=== PATIENT | female | born 1975 | race Caucasian/White ===

== ENCOUNTER 2018-03-19 18:10 | Emergency (ER) | payer SELFPAY ==
[2018-03-19] MEDS ORDERED: ASPIRIN 81 MG CHEWABLE TABLET ONE (18:44)
[2018-03-19] MEDS ORDERED: NITROGLYCERIN 0.4 MG/TAB SL ONE (18:45)
[2018-03-19 18:54] LABS: Absolute Lymphocytes (CBC) 3.1 K/uL (0.7-4.9); Absolute Monocytes 0.6 K/uL (0.1-1.3); Absolute Neutrophil 6.4 K/uL (1.8-8.0); Basophils % 0.9 % (0-1.3); Eosinophils % 1.4 % (0-4.4); Hematocrit 35.9 % (36.0-45.0); Lymphocytes % 29.9 % (15.3-44.8); MCH 27.6 pg (27.0-35.0); MCV 85.1 fL (80-100); MPV 8.2 fL (7.6-11.3); Monocytes % 6.1 % (3.3-12.3); RBC Red Blood Cell Count 4.22 M/uL (3.86-4.86)
[2018-03-19 18:55] LABS: Protime INR 1.04
[2018-03-19 19:07] LABS: Urine Blood NEGATIVE (NEG); Urine Glucose NEGATIVE (NEG); Urine Protein NEGATIVE (NEG); Urine Specific Gravity 1.015 (1.005-1.030)
[2018-03-19 19:13] LABS: ALT/SGPT 25 U/L (12-78); AST/SGOT 33 U/L (15-37); Albumin 3.8 g/dL (3.4-5.0); Alkaline Phosphatase 76 U/L (45-117); BUN Blood Urea Nitrogen 16 mg/dL (7-18); Bicarbonate 28 mmol/L (21-32); Bilirubin Direct < 0.1 mg/dL (0-0.2); Bilirubin Total 0.2 mg/dL (0.2-1.0); Glucose Level 88 mg/dL (74-106); Magnesium 2.6 mg/dL (1.8-2.4); NT PRO-BNP 50 pg/mL (<125); Potassium 3.7 mmol/L (3.5-5.1); Protein, Total 7.8 g/dL (6.4-8.2); Sodium Level 139 mmol/L (136-145)
--- NOTE | 2018-03-19 19:17 | RAD REPORT ---
EXAM DESCRIPTION: RAD - Chest Single View - 03/19/2018 6:54 pm CLINICAL HISTORY: Chest pain COMPARISON: None. TECHNIQUE: AP portable chest image was obtained 1850 hours . FINDINGS: Lungs are clear. Heart and vasculature are normal. No measurable pleural effusion and no p neumothorax. No gross bony abnormality seen. No acute aortic findings suspected. IMPRESSION: No acute cardiopulmonary process.
[2018-03-19] MEDS ORDERED: MAGNE/ALUM HYDROXD 30 ML UCUP ONE (19:53)
[2018-03-19] MEDS ORDERED: LIDOCAINE VISCOUS 2% SOLN 15 ML UDC ONE (19:53)
--- NOTE | 2018-03-19 22:15 | ER ---
Nurse's Notes [facility] Name: Stephania Zhou Age: 42 yrs Sex: Female : 1975 Arrival Date: 03/19/2018 Time: 18:10 Bed 26 Private MD: Jake Sanchez Diagnosis: Chest pain, unspecified Presentation: 03/19 18:18 Presenting complaint: Patient states: Back pain that started a few days ago, Chest pain sg that started today, non radiating, pt denies fever/N/V/D, reports urinary urgency that began today. Transition of care: patient was not received from another setting of care. Onset of symptoms was March 19, 2018. Risk Assessment: Do you want to hurt yourself or someone else? Patient reports no desire to harm self or others. Initial Sepsis Screen: Does the patient meet any 2 criteria? No. Patient's initial sepsis screen is negative. Does the patient have a suspected source of infection? No. Patient's initial sepsis screen is negative. Care prior to arrival: None. 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 - Social history:: Smoking status: Patient/guardian denies using tobacco, Patient/guardian denies using alcohol, street drugs, IV drugs. - Ebola Screening: : No symptoms or risks identified at this time. Screenin:48 Abuse screen: Denies threats or abuse. Denies injuries from another. Nutritional mg2 screening: No deficits noted. Tuberculosis screening: No symptoms or risk factors identified. Fall Risk None identified. Assessment: 18:48 General: Appears in no apparent distress. comfortable, Behavior is calm, cooperative. mg2 Pain: Complains of pain in chest Pain radiates to back Pain currently is 5 out of 10 on a pain scale. Quality of pain is described as aching, Pain began gradually, 4 hours ago. Is intermittent. Neuro: Level of Consciousness is awake, alert, obeys commands, Oriented to person, place, time, situation. Cardiovascular: Capillary refill < 3 seconds Patient's skin is warm and dry. Respiratory: Airway is patent Respiratory effort is even, unlabored, Respiratory pattern is regular, symmetrical. GI: No signs and/or symptoms were reported involving the gastrointestinal system. : No signs and/or symptoms were reported regarding the genitourinary system. EENT: No signs and/or symptoms were reported regarding the EENT system. Derm: Skin is intact, Skin is pink, warm \T\ dry. normal. Musculoskeletal: Circulation, motion, and sensation intact. 19:36 Reassessment: Patient appears in no apparent distress at this time. Patient and/or mg2 family updated on plan of care and expected duration. Pain level reassessed. Patient is alert, oriented x 3, equal unlabored respirations, skin warm/dry/pink. 20:40 Reassessment: Patient appears in no apparent distress at this time. Patient and/or mg2 family updated on plan of care and expected duration. Pain level reassessed. Patient is alert, oriented x 3, equal unlabored respirations, skin warm/dry/pink. 21:44 Reassessment: Patient appears in no apparent distress at this time. Patient and/or mg2 family updated on plan of care and expected duration. Pain level reassessed. Patient is alert, oriented x 3, equal unlabored respirations, skin warm/dry/pink. 22:42 Reassessment: Patient appears in no apparent distress at this time. Patient and/or mg2 family updated on plan of care and expected duration. Pain level reassessed. Patient is alert, oriented x 3, equal unlabored respirations, skin warm/dry/pink. Vital Signs: 18:19 Temp 98.2; sg 19:36 BP 105 / 62; Pulse 80; Resp 18; Pulse Ox 99% on R/A; mg2 20:39 BP 108 / 71; Pulse 77; Resp 18; Pulse Ox 98% ; Pain 0/10; mg2 21:43 BP 105 / 66; Pulse 73; Resp 18; Pulse Ox 98% on R/A; Pain 0/10; mg2 22:43 BP 110 / 60; Pulse 75; Resp 18; Pulse Ox 100% on R/A; Pain 0/10; mg2 18:19 reports needing to use the restroom really bad, will complete VS when pt finished using sg facilities ED Course: 18:10 Patient arrived in ED. rg4 18:10 Jake Sanchez MD is Private Physician. rg4 18:18 Christopher [facility]clure [facility]. jr8 18:18 Osvaldo Vergara MD is Attending Physician. jr8 18:19 Triage completed. sg 18:19 Arm band placed on. sg 18:37 Herber Funes, ZENAIDA is Primary Nurse. mg2 18:48 No provider procedures requiring assistance completed. Inserted saline lock: 20 gauge mg2 in left antecubital area, using aseptic technique. Blood collected. Patient maintains SpO2 saturation greater than 95% on room air. 18:50 Patient has correct armband on for positive identification. electronic device monitor on. Pulse mg2 ox on. NIBP on. 18:53 X-ray completed. Portable x-ray completed in exam room. Patient tolerated procedure kp1 well. 18:55 XRAY Chest (1 view) In Process Unspecified. EDMS 21:05 Repeat lab(s) drawn. by me, sent to lab. mg2 22:14 Sim Campos MD is Referral Physician. jr8 22:43 IV discontinued, intact, bleeding controlled, No redness/swelling at site. Pressure mg2 dressing applied. Administered Medications: 18:47 Drug: Aspirin Chewable Tablet 324 mg Route: PO; mg2 19:40 Follow up: Response: No adverse reaction mg2 18:47 Drug: Nitroglycerin 0.4 mg Route: Sublingual; mg2 19:40 Follow up: Response: No adverse reaction; Pain is unchanged, physician notified mg2 19:51 Drug: GI Cocktail without - (Maalox Suspension 30 ml, Lidocaine Liquid 2 % 15 mg2 ml) Route: PO; 20:35 Follow up: Response: No adverse reaction; Marked relief of symptoms mg2 Outcome: 22:14 Discharge ordered by . jr8 22:43 Discharged to home ambulatory, with family. mg2 22:43 Condition: stable 22:43 Discharge instructions given to patient, family, Instructed on discharge instructions, follow up and referral plans. Demonstrated understanding of instructions, follow-up care. 22:44 Patient left the ED. mg2 Signatures: Dispatcher [employer] EDMS Osvaldo Moise, ZENAIDA ESTEVEZ Christopher Mcclure PA PA jr8 May Aldridge rg4 Leatha Bowden kp1 Herber Funes, RN RN mg2
--- NOTE | 2018-03-19 22:15 | EDPHYS ---
Physician Documentation [facility] Name: Stephania Zhou Age: 42 yrs Sex: Female : 1975 Arrival Date: 03/19/2018 Time: 18:10 Bed 26 Private MD: Jake Sanchez ED Physician Osvaldo Vergara HPI: 03/19 18:31 This 42 yrs old Female presents to ER via Ambulatory with complaints of Chest jr8 Pain, Back Pain. 18:31 The patient or guardian reports chest pain that is located primarily in the substernal jr8 area. Onset: acutely, today. The pain radiates to the right shoulder, back. Associated signs and symptoms: Pertinent positives: nausea. The chest pain is described as causing indigestion, a pressure. Duration: The patient or guardian reports a single episode, that is still ongoing. Modifying factors: The symptoms are alleviated by nothing. the symptoms are aggravated by nothing. Severity of pain: At its worst the pain was moderate in the emergency department the pain is unchanged. The patient has not experienced similar symptoms in the past. The patient has not recently seen a physician. 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 - Social history:: Smoking status: Patient/guardian denies using tobacco, Patient/guardian denies using alcohol, street drugs, IV drugs. - Ebola Screening: : No symptoms or risks identified at this time. ROS: 18:31 Eyes: Negative for injury, pain, redness, and discharge, ENT: Negative for injury, jr8 pain, and discharge, Neck: Negative for injury, pain, and swelling, Respiratory: Negative for shortness of breath, cough, wheezing, and pleuritic chest pain, Abdomen/GI: Negative for abdominal pain, nausea, vomiting, diarrhea, and constipation, Back: Negative for injury and pain, MS/Extremity: Negative for injury and deformity, Skin: Negative for injury, rash, and discoloration, Neuro: Negative for headache, weakness, numbness, tingling, and seizure. 18:31 Cardiovascular: Positive for chest pain, Negative for edema, orthopnea, palpitations, paroxysmal nocturnal dyspnea. Exam: 18:31 Eyes: Pupils equal round and reactive to light, extra-ocular motions intact. Lids and jr8 lashes normal. Conjunctiva and sclera are non-icteric and not injected. Cornea within normal limits. Periorbital areas with no swelling, redness, or edema. ENT: Nares patent. No nasal discharge, no septal abnormalities noted. Tympanic membranes are normal and external auditory canals are clear. Oropharynx with no redness, swelling, or masses, exudates, or evidence of obstruction, uvula midline. Mucous membranes moist. Neck: Trachea midline, no thyromegaly or masses palpated, and no cervical lymphadenopathy. Supple, full range of motion without nuchal rigidity, or vertebral point tenderness. No Meningismus. Chest/axilla: Normal chest wall appearance and motion. Nontender with no deformity. No lesions are appreciated. Cardiovascular: Regular rate and rhythm with a normal S1 and S2. No gallops, murmurs, or rubs. Normal PMI, no JVD. No pulse deficits. Respiratory: Lungs have equal breath sounds bilaterally, clear to auscultation and percussion. No rales, rhonchi or wheezes noted. No increased work of breathing, no retractions or nasal flaring. Abdomen/GI: Soft, non-tender, with normal bowel sounds. No distension or tympany. No guarding or rebound. No evidence of tenderness throughout. Back: No spinal tenderness. No costovertebral tenderness. Full range of motion. Skin: Warm, dry with normal turgor. Normal color with no rashes, no lesions, and no evidence of cellulitis. MS/ Extremity: Pulses equal, no cyanosis. Neurovascular intact. Full, normal range of motion. Neuro: Awake and alert, GCS 15, oriented to person, place, time, and situation. Cranial nerves II-XII grossly intact. Motor strength 5/5 in all extremities. Sensory grossly intact. Cerebellar exam normal. Normal gait. 18:33 ECG was reviewed by the Attending Physician. jr8 Vital Signs: 18:19 Temp 98.2; sg 19:36 BP 105 / 62; Pulse 80; Resp 18; Pulse Ox 99% on R/A; mg2 20:39 BP 108 / 71; Pulse 77; Resp 18; Pulse Ox 98% ; Pain 0/10; mg2 21:43 BP 105 / 66; Pulse 73; Resp 18; Pulse Ox 98% on R/A; Pain 0/10; mg2 22:43 BP 110 / 60; Pulse 75; Resp 18; Pulse Ox 100% on R/A; Pain 0/10; mg2 18:19 reports needing to use the restroom really bad, will complete VS when pt finished using sg facilities MDM: 18:18 Patient medically screened. jr8 22:13 The patient was given aspirin in the Emergency Department. Data reviewed: vital signs, [facility] nurses notes, lab test result(s), EKG, radiologic studies, plain films, and as a result, I will discharge patient. Data interpreted: Pulse oximetry: on room air is 98 %. Interpretation: normal. Counseling: I had a detailed discussion with the patient and/or guardian regarding: the historical points, exam findings, and any diagnostic results supporting the discharge/admit diagnosis, lab results, radiology results, the need for outpatient follow up, a surgical services asst, a family practitioner, to return to the emergency department if symptoms worsen or persist or if there are any questions or concerns that arise at home. Response to treatment: the patient's symptoms have resolved after treatment. 03/19 18:31 Order name: CBC with Diff; Complete Time: 19:03 [facility] 03/19 18:31 Order name: Basic Metabolic Panel; Complete Time: 19:15 [facility] 03/19 18:31 Order name: LFT's; Complete Time: 19:15 [facility] 03/19 18:31 Order name: Magnesium; Complete Time: 19:15 [facility] 03/19 18:31 Order name: NT PRO-BNP; Complete Time: 19:15 [facility] 03/19 18:31 Order name: PT-INR; Complete Time: 19:03 [facility] 03/19 18:31 Order name: Troponin (emerg Dept Use Only); Complete Time: 19:13 [facility] 03/19 18:31 Order name: XRAY Chest (1 view); Complete Time: 19:17 jr8 03/19 18:51 Order name: Urine Dipstick--Ancillary (enter results); Complete Time: 19:13 mb4 03/19 18:51 Order name: Urine --Ancillary (enter results); Complete Time: 19:13 mb4 03/19 20:57 Order name: Troponin I; Complete Time: 22:16 mg2 03/19 18:31 Order name: EKG; Complete Time: 18:31 03/19 18:31 Order name: Cardiac monitoring; Complete Time: 18:38 03/19 18:31 Order name: EKG - Nurse/Tech; Complete Time: 18:38 03/19 18:31 Order name: IV Saline Lock; Complete Time: 18:38 03/19 18:31 Order name: Labs collected and sent; Complete Time: 18:38 03/19 18:31 Order name: O2 Per Protocol; Complete Time: 18:38 03/19 18:31 Order name: O2 Sat Monitoring; Complete Time: 18:38 03/19 18:31 Order name: Urine Dipstick-Ancillary (obtain specimen); Complete Time: 18:48 03/19 18:31 Order name: Urine Test (obtain specimen); Complete Time: 18:48 jr8 EC:33 Rate is 84 beats/min. Rhythm is regular, Normal Sinus Rhythm. QRS [place] is Normal. [place] jr8 interval is normal at 142 msec. QRS interval is normal at 88 msec. QT interval is normal at 449 msec. No Q waves. T waves are Inverted in lead III. T waves are Flattened in leads aVF, V3. No ST changes noted. Clinical impression: NSR w/ Non-specific ST/T Changes. Interpreted by me. Reviewed by me. Administered Medications: 18:47 Drug: Aspirin Chewable Tablet 324 mg Route: PO; mg2 19:40 Follow up: Response: No adverse reaction mg2 18:47 Drug: Nitroglycerin 0.4 mg Route: Sublingual; mg2 19:40 Follow up: Response: No adverse reaction; Pain is unchanged, physician notified mg2 19:51 Drug: GI Cocktail without - (Maalox Suspension 30 ml, Lidocaine Liquid 2 % 15 mg2 ml) Route: PO; 20:35 Follow up: Response: No adverse reaction; Marked relief of symptoms mg2 Disposition: 03/19/18 22:14 Discharged to Home. Impression: Chest pain, unspecified. - Condition is Stable. - Discharge Instructions: Nonspecific Chest Pain, Gastroesophageal Reflux Disease, Adult, Aspirin and Your Heart. - Medication Reconciliation Form, Thank You Letter, Antibiotic Education, Prescription Opioid Use form. - Follow up: Sim Campos MD; When: 1 - 2 days; Reason: Recheck today's complaints, Continuance of care, Re-evaluation by your physician. - Problem is new. - Symptoms have improved. Addendum: 03/21/2018 08:15 Co-signature as Attending Physician, Osvaldo Vergara MD I agree with the assessment and w a plan of care. Signatures: Dispatcher [employer] EDMS Osvaldo Moise RN RN sg Christopher Mcclure, GISEL PA jr8 Osvaldo Vergara MD MD az Herber Funes RN RN mg2 Corrections: (The following items were deleted from the chart) 03/19 22:44 22:14 03/19/2018 22:14 Discharged to Home. Impression: Chest pain, unspecified. mg2 Condition is Stable. Forms are Medication Reconciliation Form, Thank You Letter, Antibiotic Education, Prescription Opioid Use. Follow up: Sim Campos; When: 1 - 2 days; Reason: Recheck today's complaints, Continuance of care, Re-evaluation by your physician. Problem is new. Symptoms have improved. jr8
--- NOTE | 2018-03-20 07:08 | EKG ---
Test Date: 2018-03-19 Test Time: 18:22:30 Medical Economics Consultant: OMAR MEASUREMENT RESULTS: Intervals: Rate: 84 [place]: 142 QRSD: 88 QT: 380 QTc: 449 Kevin: P: 27 [place]: 142 QRS: 2 T: -3 INTERPRETIVE STATEMENTS: Normal sinus rhythm Normal ECG No previous ECG available for comparison Electronically Signed On 03-20-18 07:07:07 CDT by Sim Campos
== END 2018-03-19 22:44 | disposition home or self-care (01) ==
LOC: ER 18:10
DX: R07.9 Chest pain, unspecified (principal)
CPT/HCPCS: 36415; 71045; 80048; 80076; 81003; 81025; 83735; 83880; 84484; 85025; 85610; 93005; 99285

== ENCOUNTER 2019-06-11 19:03 | Emergency (ER) | payer SELFPAY ==
[2019-06-11] MEDS ORDERED: ALBUTEROL 2.5 MG/3 ML NEB SOL ONE ×2 (19:51→20:28)
[2019-06-11] MEDS ORDERED: IPRATROPIUM BROM 0.5MG/2.5ML ONE ×2 (19:51→20:28)
--- NOTE | 2019-06-11 20:00 | RAD REPORT ---
EXAM DESCRIPTION: [place] Single View06/11/2019 7:48 pm CLINICAL HISTORY: Chest pain COMPARISON: 2018 FINDINGS: The lungs appear clear of acute infiltrate. The heart is normal size IMPRESSION: No acute abnormalities displayed
--- NOTE | 2019-06-11 20:51 | ER ---
Nurse's Notes [facility] Name: Stephania Zhou Age: 43 yrs Sex: Female : 1975 Arrival Date: 06/11/2019 Time: 19:08 Bed 18 Private MD: Jake Sanchez Diagnosis: Bronchitis, not specified as acute or chronic Presentation: 06/11 19:28 Presenting complaint: Patient states: Reports having a non productive cough for a few ea days, states "this morning my cough got worse and now I have a hacking cough with lots of yellow mucus" Pt reports congestion, sinus pressure, headache, ear pain and pain in lungs when deep breathing. Transition of care: patient was not received from another setting of care. Onset of symptoms was June 11, 2019. Risk Assessment: Do you want to hurt yourself or someone else? Patient reports no desire to harm self or others. Initial Sepsis Screen: Does the patient meet any 2 criteria? HR > 90 bpm. Does the patient have a suspected source of infection? No. Patient's initial sepsis screen is negative. Care prior to arrival: None. 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 - Social history:: Smoking status: Patient/guardian denies using tobacco. - Ebola Screening: : No symptoms or risks identified at this time. Screenin:31 Abuse screen: Denies threats or abuse. Nutritional screening: No deficits noted. ea Tuberculosis screening: No symptoms or risk factors identified. Fall Risk None identified. Assessment: 19:54 General: Appears in no apparent distress. uncomfortable, Behavior is calm, cooperative, jd3 appropriate for age. Pain: Complains of pain in chest Quality of pain is described as aching. Neuro: Level of Consciousness is awake, alert, obeys commands, Oriented to person, place, time, situation. Cardiovascular: Capillary refill < 3 seconds Patient's skin is warm and dry. Respiratory: Reports cough that is non-productive, persistent pain with cough Airway is patent Respiratory effort is even, unlabored, Respiratory pattern is regular, symmetrical, Denies shortness of breath. GI: No signs and/or symptoms were reported involving the gastrointestinal system. : No signs and/or symptoms were reported regarding the genitourinary system. EENT: No signs and/or symptoms were reported regarding the EENT system. Derm: Skin is intact, Skin is dry, Skin is normal, Skin temperature is warm. Musculoskeletal: Circulation, motion, and sensation intact. Range of motion: intact in all extremities. 20:56 Reassessment: Patient appears in no apparent distress at this time. Patient and/or jd3 family updated on plan of care and expected duration. Pain level reassessed. Patient is alert, oriented x 3, equal unlabored respirations, skin warm/dry/pink. reported understanding of discharge instructions. even and steady gait upon discharge. Patient states feeling better. Vital Signs: 19:30 BP 123 / 74; Pulse 109; Resp 20; Temp 97.5; Pulse Ox 100% ; Weight 102.06 kg; Height 5 ea ft. 6 in. (167.64 cm); Pain 6/10; 19:30 Body Mass Index 36.32 (102.06 kg, 167.64 cm) ea ED Course: 19:08 Patient arrived in ED. es 19:08 Jake Sanchez MD is Private Physician. es 19:19 Freddie Cervantes MD is Attending Physician. tw4 19:30 Triage completed. ea 19:31 Arm band placed on right wrist. Patient placed in an exam room, on a stretcher, on ea pulse oximetry. 19:31 Patient has correct armband on for positive identification. Placed in gown. Bed in low ea position. Call light in reach. 19:47 CXR XRAY In Process Unspecified. EDMS 19:49 Joshua Jackson RN is Primary Nurse. jd3 20:57 No provider procedures requiring assistance completed. Patient did not have IV access jd3 during this emergency room visit. Administered Medications: 19:54 Drug: DuoNeb (3:1) (2.5 mg - 0.5 mg) 3 ml Route: Nebulizer; jd3 21:00 Follow up: Response: No adverse reaction jd3 20:45 Drug: Albuterol 1.25 mg Route: Inhalation; jd3 21:00 Follow up: Response: No adverse reaction jd3 20:45 Drug: AtroVENT Aerosol 0.5 mg Route: Inhalation; jd3 21:00 Follow up: Response: No adverse reaction jd3 Outcome: 20:50 Discharge ordered by . tw4 20:57 Discharged to home ambulatory, with family. jd3 20:57 Condition: stable 20:57 Discharge instructions given to patient, family, Instructed on discharge instructions, follow up and referral plans. medication usage, Demonstrated understanding of instructions, follow-up care, medications, Prescriptions given X 4. 21:01 Patient left the ED. jd3 Signatures: Dispatcher [employer] Jessi Lindsey Elena RN Joshua Bagley ea, RN RN Freddie Sauceda MD MD tw4 Corrections: (The following items were deleted from the chart) 21:00 20:59 Albuterol 1.25 mg Inhalation jd3 jd3
--- NOTE | 2019-06-11 20:51 | EDPHYS ---
Physician Documentation [facility] Name: Stephania Zhou Age: 43 yrs Sex: Female : 1975 Arrival Date: 06/11/2019 Time: 19:08 Bed 18 Private MD: Jake Sanchez ED Physician Freddie Cervantes HPI: 06/12 06:39 This 43 yrs old Female presents to ER via Ambulatory with complaints of Cough.tw4 06:39 The patient or guardian reports cough. Onset: The symptoms/episode began/occurred tw4 today. Severity of symptoms: At their worst the symptoms were mild, in the emergency department the symptoms are unchanged. Modifying factors: The symptoms are alleviated by nothing, the symptoms are aggravated by nothing. The patient has not experienced similar symptoms in the past. 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 - Social history:: Smoking status: Patient/guardian denies using tobacco. - Ebola Screening: : No symptoms or risks identified at this time. ROS: 06/12 06:39 Constitutional: Negative for fever, chills, and weight loss, Eyes: Negative for injury, tw4 pain, redness, and discharge, Cardiovascular: Negative for chest pain, palpitations, and edema, Abdomen/GI: Negative for abdominal pain, nausea, vomiting, diarrhea, and constipation, Back: Negative for injury and pain. MS/Extremity: Negative for injury and deformity, Skin: Negative for injury, rash, and discoloration. Respiratory: Positive for cough, shortness of breath. Exam: 06:39 Constitutional: This is a well developed, well nourished patient who is awake, alert, tw4 and in no acute distress. Head/Face: Normocephalic, atraumatic. Chest/axilla: Normal chest wall appearance and motion. Nontender with no deformity. No lesions are appreciated. Cardiovascular: Regular rate and rhythm with a normal S1 and S2. No gallops, murmurs, or rubs. Normal PMI, no JVD. No pulse deficits. Respiratory: Lungs have equal breath sounds bilaterally, clear to auscultation and percussion. No rales, rhonchi or wheezes noted. No increased work of breathing, no retractions or nasal flaring. Abdomen/GI: Soft, non-tender, with normal bowel sounds. No distension or tympany. No guarding or rebound. No evidence of tenderness throughout. MS/ Extremity: Pulses equal, no cyanosis. Neurovascular intact. Full, normal range of motion. Neuro: Awake and alert, GCS 15, oriented to person, place, time, and situation. Cranial nerves II-XII grossly intact. Motor strength 5/5 in all extremities. Sensory grossly intact. Cerebellar exam normal. Normal gait. Vital Signs: 06/11 19:30 BP 123 / 74; Pulse 109; Resp 20; Temp 97.5; Pulse Ox 100% ; Weight 102.06 kg; Height 5 ea ft. 6 in. (167.64 cm); Pain 6/10; 19:30 Body Mass Index 36.32 (102.06 kg, 167.64 cm) ea MDM: 19:20 Patient medically screened. tw4 06/12 06:40 Data reviewed: vital signs, nurses notes. Data reviewed: radiologic studies, plain tw4 films. Counseling: I had a detailed discussion with the patient and/or guardian regarding: the historical points, exam findings, and any diagnostic results supporting the discharge/admit diagnosis, radiology results. Medication response: albuterol nebulizer treatment(s) relieved the patient's symptoms. The patient is no longer wheezing. Response to treatment: and as a result, I will discharge patient. Special discussion: I discussed with the patient/guardian in detail that at this point there is no indication for admission to the hospital. It is understood, however, that if the symptoms persist or worsen the patient needs to return immediately for re-evaluation. 06/11 19:41 Order name: CXR XRAY; Complete Time: 20:22 tw4 Administered Medications: 06/11 19:54 Drug: DuoNeb (3:1) (2.5 mg - 0.5 mg) 3 ml Route: Nebulizer; jd3 21:00 Follow up: Response: No adverse reaction jd3 20:45 Drug: Albuterol 1.25 mg Route: Inhalation; jd3 21:00 Follow up: Response: No adverse reaction jd3 20:45 Drug: AtroVENT Aerosol 0.5 mg Route: Inhalation; jd3 21:00 Follow up: Response: No adverse reaction jd3 Disposition: 06/11/19 20:50 Discharged to Home. Impression: Bronchitis, not specified as acute or chronic. - Condition is Stable. - Discharge Instructions: Acute Bronchitis, Adult, Upper Respiratory Infection, Adult. - Prescriptions for Tessalon Perles 100 mg Oral Capsule - take 1 capsule by ORAL route every 8 hours As needed; 15 capsule. Albuterol Sulfate 90 mcg/actuation - inhale 1-2 puff by INHALATION route every 4-6 hours; 1 Inhaler. Guaifenesin AC 10- 100 mg/5 mL Oral Liquid - take 10 milliliter by ORAL route every 4 hours As needed; 240 milliliter. Tamika- D 12 Hour 60-120 mg Oral Tablet Sustained Release 12 hr - take 1 tablet by ORAL route every 12 hours As needed; 30 tablet. - Medication Reconciliation Form, Thank You Letter, Antibiotic Education, Prescription Opioid Use form. - Follow up: Private Physician; When: Upon discharge from the Emergency Department; Reason: Recheck today's complaints, Continuance of care. - Problem is new. - Symptoms have improved. Signatures: Dispatcher [employer] EDAyanna Waldron RN RN ea Davies, Jonathon, RN RN jd3 Wadley, Terrence, MD MD tw4 Corrections: (The following items were deleted from the chart) 21:01 20:50 06/11/2019 20:50 Discharged to Home. Impression: Bronchitis, not specified as jd3 acute or chronic. Condition is Stable. Forms are Medication Reconciliation Form, Thank You Letter, Antibiotic Education, Prescription Opioid Use. Follow up: Private Physician; When: Upon discharge from the Emergency Department; Reason: Recheck today's complaints, Continuance of care. Problem is new. Symptoms have improved. tw4
[2019-06-11 21:30] VITALS: BP 123/74; TEMP 97.5; O2SAT 100
== END 2019-06-11 21:01 | disposition home or self-care (01) ==
LOC: ER 19:03
DX: J40 Bronchitis, not specified as acute or chronic (principal)
CPT/HCPCS: 71045; 94640; 99284

== ENCOUNTER 2019-07-13 23:58 | Inpatient (IN) | payer BC, SELFPAY ==
[2019-07-14] MEDS ORDERED: ONDANSETRON 4 MG/2 ML VIAL ONE ×3 (00:16→07:56)
[2019-07-14] MEDS ORDERED: NA CHLORIDE 0.9% 1,000 ML ONE (00:16)
[2019-07-14] MEDS ORDERED: MORPHINE 4 MG/ML SYR ONE (00:16)
[2019-07-14 00:57] LABS: Absolute Lymphocytes (CBC) 3.2 K/uL (0.7-4.9); Basophils % 0.8 % (0-1.3); Hematocrit 32.6 % (36.0-45.0); Lymphocytes % 31.6 % (15.3-44.8); MPV 8.1 fL (7.6-11.3); RBC Red Blood Cell Count 4.02 M/uL (3.86-4.86)
[2019-07-14 01:10] LABS: ALT/SGPT 23 U/L (12-78); AST/SGOT 14 U/L (15-37); Albumin 3.6 g/dL (3.4-5.0); Alkaline Phosphatase 91 U/L (45-117); BUN Blood Urea Nitrogen 11 mg/dL (7-18); Bicarbonate 28 mmol/L (21-32); Bilirubin Direct < 0.1 mg/dL (0-0.2); Bilirubin Total 0.2 mg/dL (0.2-1.0); Glucose Level 121 mg/dL (74-106); Lipase 165 U/L (73-393); Potassium 3.6 mmol/L (3.5-5.1); Protein, Total 7.6 g/dL (6.4-8.2); Sodium Level 140 mmol/L (136-145)
[2019-07-14] MEDS ORDERED: METHYLPREDNISOLONE 125 MG INJ ONE (01:30)
[2019-07-14] MEDS ORDERED: DIPHENHYDRAMINE 50 MG/ML VIAL ONE (01:31)
[2019-07-14] MEDS ORDERED: FAMOTIDINE 20 MG/2 ML VIAL IV ONE (01:31)
[2019-07-14] MEDS ORDERED: PIPER/TAZO/NS 3.375gm 3.375 GM/100 ML BAG ONE (02:47)
--- NOTE | 2019-07-14 03:16 | ER ---
Nurse's Notes [facility] Name: Stephania Zhou Age: 43 yrs Sex: Female : 1975 Arrival Date: 07/14/2019 Time: 00:01 Bed 23 Private MD: Diagnosis: Acute cholecystitis Presentation: 07/14 00:09 Presenting complaint: Patient states: I started having abdominal pain after eating. I tl1 vomited once but the pain is still there. I have had this pain before but it has been about 6 months. Transition of care: patient was not received from another setting of care. Onset of symptoms was July 14, 2019. Risk Assessment: Do you want to hurt yourself or someone else? Patient reports no desire to harm self or others. Initial Sepsis Screen: Does the patient meet any 2 criteria? No. Patient's initial sepsis screen is negative. Does the patient have a suspected source of infection? No. Patient's initial sepsis screen is negative. Care prior to arrival: None. 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 - Social history:: Smoking status: Patient/guardian denies using tobacco, Patient uses alcohol, but reports only rare drinking. - Ebola Screening: : Patient negative for fever greater than or equal to 101.5 degrees Fahrenheit, and additional compatible Ebola Virus Disease symptoms Patient denies exposure to infectious person Patient denies travel to an Ebola-affected area in the 21 days before illness onset. Screenin:23 Abuse screen: Denies threats or abuse. Nutritional screening: No deficits noted. ea Tuberculosis screening: No symptoms or risk factors identified. Fall Risk None identified. Assessment: 00:24 General: Appears uncomfortable, Behavior is crying, restless. Pain: Complains of pain ea in right upper quadrant. Neuro: Level of Consciousness is awake, alert, obeys commands, Oriented to person, place, time, situation. Cardiovascular: Patient's skin is warm and dry. Respiratory: Airway is patent Respiratory effort is even, unlabored, Respiratory pattern is regular, symmetrical. GI: Bowel sounds present X 4 quads. Abdomen is tender to palpation in right upper quadrant. Derm: Skin is pink, warm \\T\\ dry. 00:48 Reassessment: Patient and/or family updated on plan of care and expected duration. Pain ea level reassessed. Pt reports pain is bearable now, states "it still hurts but not as much as earlier". 01:55 Reassessment: Patient and/or family updated on plan of care and expected duration. Pain ea level reassessed. Patient is alert, oriented x 3, equal unlabored respirations, skin warm/dry/pink. Pt returned from CT. 02:55 Reassessment: Patient and/or family updated on plan of care and expected duration. Pain ea level reassessed. Patient is alert, oriented x 3, equal unlabored respirations, skin warm/dry/pink. 03:30 Reassessment: Patient and/or family updated on plan of care and expected duration. Pain ea level reassessed. Patient is alert, oriented x 3, equal unlabored respirations, skin warm/dry/pink. 04:46 Reassessment: Patient and/or family updated on plan of care and expected duration. Pain ea level reassessed. Patient is alert, oriented x 3, equal unlabored respirations, skin warm/dry/pink. Pt admitted to fourth floor, left ED via stretcher per tech, pt tolerating well, no s/s of pain or discomfort at this time. Vital Signs: 00:12 BP 143 / 78; Pulse 65; Resp 17; Temp 98.2; Pulse Ox 100% ; Weight 99.79 kg; Height 5 tl1 ft. 6 in. (167.64 cm); Pain 10/10; 00:46 BP 114 / 78; Pulse 78; Resp 18; Pulse Ox 98% ; Pain 7/10; ea 01:55 BP 109 / 68; Pulse 80; Resp 18; Pulse Ox 98% ; ea 02:45 BP 110 / 70; Pulse 78; Resp 18; Temp 98; Pulse Ox 98% ; ea 04:47 BP 120 / 70; Pulse 72; Resp 18; Pulse Ox 100% ; ea 00:12 Body Mass Index 35.51 (99.79 kg, 167.64 cm) tl1 ED Course: 00:01 Patient arrived in ED. cf2 00:10 Freddie Marie MD is Attending Physician. tw4 00:11 Triage completed. tl1 00:14 Arm band placed on right wrist. tl1 00:18 Inserted saline lock: 20 gauge in right antecubital area, using aseptic technique. ea Blood collected. 00:20 Ayanna Zabala, ZENAIDA is Primary Nurse. ea 00:23 Patient has correct armband on for positive identification. Placed in gown. Bed in low ea position. Call light in reach. Side rails up X2. 00:26 Radiology exam delayed due to lab results not completed at this time. (HCG) eh (BUN/Creatinine). 01:51 Radiology exam delayed due to PRE-MEDICATION PER DR MARIE. eh 01:[address] via wheelchair. eh 02:07 CT completed. Patient tolerated procedure well. Patient moved back from CT. eh 02:13 CT Abd/Pelvis - IV Contrast Only In Process Unspecified. EDMS 03:15 Alex Kumari MD is Hospitalizing Provider. tw4 03:15 No provider procedures requiring assistance completed. Patient admitted, IV remains in ea place. Administered Medications: 00:25 Drug: NS 0.9% 1000 ml Route: IV; Rate: 1 bolus; Site: right antecubital; ea 02:30 Follow up: Response: No adverse reaction; IV Status: Completed infusion; IV Intake: ea 1000ml 00:25 Drug: morphine 4 mg Route: IVP; Site: right antecubital; ea 00:47 Follow up: Response: No adverse reaction; Pain is decreased ea 00:25 Drug: Zofran 4 mg Route: IVP; Site: right antecubital; ea 00:47 Follow up: Response: No adverse reaction ea 01:39 Drug: SOLU-Medrol 125 mg Route: IVP; Site: right wrist; ea 02:08 Follow up: Response: No adverse reaction ea 01:39 Drug: Benadryl 50 mg Route: IVP; Site: right antecubital; ea 02:08 Follow up: Response: No adverse reaction ea 01:40 Drug: Pepcid 20 mg Route: IVP; Site: right antecubital; ea 02:08 Follow up: Response: No adverse reaction ea 02:54 Drug: Zosyn 3.375 grams Route: IVPB; Infused Over: 60 mins; Site: right antecubital; ea Intake: 02:30 IV: 1000ml; Total: 1000ml. ea Outcome: 03:15 Decision to Hospitalize by Provider. tw4 04:48 Admitted to Med/surg accompanied by tech, via stretcher, with chart, Report called to grover Adam RN on fourth floor 04:48 Condition: stable 04:48 Instructed on the need for admit, Demonstrated understanding of instructions. 04:49 Patient left the ED. ea Signatures: Dispatcher [employer] He Guerrero Sarahy West, RN RN tl1 Ayanna Zabala RN RN Freddie Garnett MD MD tw4 Enedelia Marie cf2 Corrections: (The following items were deleted from the chart) 01:52 01:52 CT completed. Patient tolerated procedure [facility]
--- NOTE | 2019-07-14 03:16 | EDPHYS ---
Physician Documentation [facility] Name: Stephania Zhou Age: 43 yrs Sex: Female : 1975 Arrival Date: 07/14/2019 Time: 00:01 Bed 23 Private MD: ED Physician Freddie Cervantes HPI: 07/14 00:15 This 43 yrs old Female presents to ER via Ambulatory with complaints of tw4 Abdominal Pain, Vomiting. 00:15 The patient presents with abdominal pain. Onset: The symptoms/episode began/occurred tw4 today. The symptoms do not radiate. Associated signs and symptoms: Pertinent positives: nausea and vomiting, nausea, vomiting, Pertinent negatives: blood in stools, chest pain, constipation, diarrhea, dysuria, fever. The symptoms are described as sharp. Modifying factors: The symptoms are alleviated by nothing, the symptoms are aggravated by nothing. Severity of pain: At its worst the pain was moderate in the emergency department the pain is unchanged. The patient has not experienced similar symptoms in the past. 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 - Social history:: Smoking status: Patient/guardian denies using tobacco, Patient uses alcohol, but reports only rare drinking. - Ebola Screening: : Patient negative for fever greater than or equal to 101.5 degrees Fahrenheit, and additional compatible Ebola Virus Disease symptoms Patient denies exposure to infectious person Patient denies travel to an Ebola-affected area in the 21 days before illness onset. ROS: 00:15 Constitutional: Negative for fever, chills, and weight loss, Eyes: Negative for injury, tw4 pain, redness, and discharge, Cardiovascular: Negative for chest pain, palpitations, and edema, Respiratory: Negative for shortness of breath, cough, wheezing, and pleuritic chest pain, Back: Negative for injury and pain. 00:15 MS/Extremity: Negative for injury and deformity, Skin: Negative for injury, rash, and discoloration, Neuro: Negative for headache, weakness, numbness, tingling, and seizure. 00:15 Abdomen/GI: Positive for abdominal pain, Negative for nausea and vomiting, nausea, vomiting, and diarrhea, nausea, vomiting, diarrhea, constipation, abdominal cramps, abdominal distension, anorexia, dysphagia, hematemesis, black/tarry stool, rectal pain, rectal bleeding. Exam: 00:15 Head/Face: Normocephalic, atraumatic. tw4 00:15 Chest/axilla: Normal chest wall appearance and motion. Nontender with no deformity. No lesions are appreciated. Cardiovascular: Regular rate and rhythm with a normal S1 and S2. No gallops, murmurs, or rubs. Normal PMI, no JVD. No pulse deficits. Respiratory: Lungs have equal breath sounds bilaterally, clear to auscultation and percussion. No rales, rhonchi or wheezes noted. No increased work of breathing, no retractions or nasal flaring. Abdomen/GI: Soft, non-tender, with normal bowel sounds. No distension or tympany. No guarding or rebound. No evidence of tenderness throughout. MS/ Extremity: Pulses equal, no cyanosis. Neurovascular intact. Full, normal range of motion. Neuro: Awake and alert, GCS 15, oriented to person, place, time, and situation. Cranial nerves II-XII grossly intact. Motor strength 5/5 in all extremities. Sensory grossly intact. Cerebellar exam normal. Normal gait. Psych: Awake, alert, with orientation to person, place and time. Behavior, mood, and affect are within normal limits. 00:15 Constitutional: The patient appears in obvious distress, moderately distressed, in obvious pain. Vital Signs: 00:12 BP 143 / 78; Pulse 65; Resp 17; Temp 98.2; Pulse Ox 100% ; Weight 99.79 kg; Height 5 tl1 ft. 6 in. (167.64 cm); Pain 10/10; 00:46 BP 114 / 78; Pulse 78; Resp 18; Pulse Ox 98% ; Pain 7/10; ea 01:55 BP 109 / 68; Pulse 80; Resp 18; Pulse Ox 98% ; ea 02:45 BP 110 / 70; Pulse 78; Resp 18; Temp 98; Pulse Ox 98% ; ea 04:47 BP 120 / 70; Pulse 72; Resp 18; Pulse Ox 100% ; ea 00:12 Body Mass Index 35.51 (99.79 kg, 167.64 cm) tl1 MDM: 00:10 Patient medically screened. tw4 03:15 Differential diagnosis: cholecystitis, Cholelithiasis, gastritis, gastroesophageal tw4 reflux disease, GI Bleed, non-specific abd pain, pancreatitis, Peptic Ulcer Disease, Perf. Duodenal Ulcer, Perf. Gastric Ulcer, Peritonitis. Data reviewed: vital signs, nurses notes. Data interpreted: Pulse oximetry: Interpretation: normal. Counseling: I had a detailed discussion with the patient and/or guardian regarding: the historical points, exam findings, and any diagnostic results supporting the discharge/admit diagnosis, radiology results. Medication response: morphine relieved the patient's pain. Symptoms have resolved. Response to treatment: the patient's symptoms have markedly improved after treatment. Physician consultation: Alex Kumari MD regarding admission, to the medical/surgical unit. patient's condition, need to evaluate the patient as soon as possible, and will see patient in inpatient room, in OR. Admission orders: after a detailed discussion of the patient's condition and case, the admit orders are written by me. 03:53 Data reviewed: radiologic studies, CT scan. Data reviewed: lab test result(s), CBC, tw4 white blood cell count, hemoglobin, hematocrit, platelets, electrolytes, sodium, potassium, chloride, serum bicarbonate, BUN, creatinine, serum glucose, hepatic panel. 07/14 00:12 Order name: Basic Metabolic Panel; Complete Time: 02:4 07/14 02:31 Interpretation: Normal except: GLUC 121; GFR 60. tw4 07/14 00:12 Order name: CBC with Diff; Complete Time: 02:4 07/14 02:31 Interpretation: Normal except: HGB 10.9; HCT 32.6; MCV 81.1; RDW 16.7. tw4 07/14 00:12 Order name: Creatinine for Radiology; Complete Time: 02:4 07/14 02:32 Interpretation: Normal except: GFR 58. tw4 07/14 00:12 Order name: Hepatic Function; Complete Time: 02: tw4 07/14 00:12 Order name: Lipase; Complete Time: 02:4 07/14 03:24 Order name: Basic Metabolic Panel EDUT 07/14 00:12 Order name: CT Abd/Pelvis - IV Contrast Only tw4 07/14 03:24 Order name: Basic Metabolic Panel EDMS 07/14 03:24 Order name: CBC with Automated Diff EDMS 07/14 03:24 Order name: CBC with Automated Diff EDMS 07/14 03:24 Order name: Lipase EDMS 07/14 03:24 Order name: Lipase EDMS 07/14 03:24 Order name: Liver (Hepatic) Function EDMS 07/14 03:24 Order name: Liver (Hepatic) Function EDMS 07/14 00:12 Order name: IV Saline Lock; Complete Time: 00:24 tw4 07/14 00:12 Order name: Labs collected and sent; Complete Time: 00:25 tw4 07/14 03:24 Order name: NPO EDMS Administered Medications: 00:25 Drug: NS 0.9% 1000 ml Route: IV; Rate: 1 bolus; Site: right antecubital; ea 02:30 Follow up: Response: No adverse reaction; IV Status: Completed infusion; IV Intake: ea 1000ml 00:25 Drug: morphine 4 mg Route: IVP; Site: right antecubital; ea 00:47 Follow up: Response: No adverse reaction; Pain is decreased ea 00:25 Drug: Zofran 4 mg Route: IVP; Site: right antecubital; ea 00:47 Follow up: Response: No adverse reaction ea 01:39 Drug: SOLU-Medrol 125 mg Route: IVP; Site: right wrist; ea 02:08 Follow up: Response: No adverse reaction ea 01:39 Drug: Benadryl 50 mg Route: IVP; Site: right antecubital; ea 02:08 Follow up: Response: No adverse reaction ea 01:40 Drug: Pepcid 20 mg Route: IVP; Site: right antecubital; ea 02:08 Follow up: Response: No adverse reaction ea 02:54 Drug: Zosyn 3.375 grams Route: IVPB; Infused Over: 60 mins; Site: right antecubital; ea Disposition: 07/14/19 03:15 Hospitalization ordered by Alex Kumari for Inpatient Admission. Preliminary diagnosis is Acute cholecystitis. - Bed requested for Telemetry/MedSurg (Inpatient). - Status is Inpatient Admission. ea - Condition is Stable. - Problem is new. - Symptoms are unchanged. UTI on Admission? No Signatures: Dispatcher [employer] EDSarahy Cedeno RN RN tl1 Jazmin Aldridge, RN RN cg Ayanna Zabala, RN Freddie Cardenas ea, MD MD tw4 Corrections: (The following items were deleted from the chart) 03:41 03:15 Hospitalization Ordered by Alex Kumari MD for Inpatient Admission. Preliminary cg diagnosis is Acute cholecystitis. Bed requested for Telemetry/MedSurg (Inpatient). Status is Inpatient Admission. Condition is Stable. Problem is new. Symptoms are unchanged. UTI on Admission? No. tw4 03:54 03:15 Data reviewed: radiologic studies, ultrasound, 4 tw4 04:49 03:41 07/14/2019 03:15 Hospitalization Ordered by Alex Kumari MD for Inpatient ea Admission. Preliminary diagnosis is Acute cholecystitis. Bed requested for Telemetry/MedSurg (Inpatient). Status is Inpatient Admission. Condition is Stable. Problem is new. Symptoms are unchanged. UTI on Admission? No.
[2019-07-14] MEDS ORDERED: ACETAMINOPHEN 500 MG TAB PO PRN (03:23)
[2019-07-14] MEDS: D5 0.45 NS 1,000 ML IV SCH ×3 (04:00→17:49)
[2019-07-14 05:44] VITALS: BMI 36.8
[2019-07-14] MEDS ORDERED: Ringers Lactate 1,000 ML IV ONE ×2 (05:59→07:19)
[2019-07-14] MEDS ORDERED: LIDOCAINE 2% MPF 5 ML VIAL ONE (06:06)
[2019-07-14] MEDS ORDERED: propofoL 200 MG/20 ML VIAL IV ONE (06:06)
[2019-07-14] MEDS ORDERED: ROCURONIUM 50 MG/5 ML VIAL IV ONE (06:06)
[2019-07-14] MEDS ORDERED: FENTANYL CITR 100 MCG/2 ML ONE (06:07)
[2019-07-14 06:13] LABS: Urine Appearance CLEAR; Urine Bilirubin NEGATIVE (NEG); Urine Blood NEGATIVE (NEG); Urine Color YELLOW; Urine Glucose NEGATIVE (NEG); Urine Microscopic Reflex NO UMIC; Urine Protein NEGATIVE (NEG); Urine Specific Gravity >=1.030 (1.005-1.030); Urine Urobilinogen 0.2 mg/dL (0.2-1.0); Urine pH 7.5 (5.0-7.0)
[2019-07-14] MEDS ORDERED: KETOROLAC 30 MG/ML INJ ONE (06:31)
[2019-07-14] MEDS ORDERED: BUPIVACAINE 0.5% PF 10 ML VIAL ONE (06:31)
[2019-07-14] MEDS ORDERED: dexAMETHasone 10 MG/ML VIAL ONE (06:32)
[2019-07-14] MEDS ORDERED: NEOSTIGMINE 1 MG/ML -10 ML VIAL ONE (06:50)
[2019-07-14] MEDS ORDERED: GLYCOPYRROLATE 0.2 MG/ML SYR ONE (06:50)
--- NOTE | 2019-07-14 07:08 | PREOPHP ---
Date of Admission: 07/14/2019 Reason For Consultation: Abdominal pain. History Of Present Illness: Patient is a 43-year-old female who comes in with 2 history of biliary c olic with worse symptoms starting yesterday of upper abdominal pain associated with bloating, belchin g, heartburn, nausea and vomiting, going to the back, and localized in the right upper quadrant. She had Amezquita sign when she was admitted. No diarrhea or constipation. No blood in her stool. No dys uria or hematuria. No sore throat, runny nose, cough, headaches, or dizziness. No chest pain. No f ever or chills. The pain is postprandial in nature. Review of Systems: Otherwise unremarkable. Past Medical History: Negative. Past Surgical History: Bilateral tubal. Allergies: NO ALLERGIES. Social History: Does not smoke. Drinks occasionally. Family History: Significant for hypertension, diabetes. Physical Examination: Vital Signs: Stable. She is currently afebrile. She is awake, alert, and oriented x3. Head and neck: No evidence of icterus. Cranial nerves 2 through 12 are grossly within normal limits . No neck masses. No JVD. Throat clear. Neck is supple. Chest: Clear. Heart: S1 and S2. Abdomen: Soft, nondistended. Positive right upper quadrant tenderness with rebound and Amezquita sign. Extremity: Adequately perfused. Nontender. Neuro: Nonfocal. CT of the abdomen and pelvis reveals evidence of acute cholecystitis with thickeni ng of the gallbladder with some fluid around the gallbladder with some stones. No other disease iden tified. White count is normal. LFTs are normal. Lipase are normal. Assessment: Acute cholecystitis and cholelithiasis. Plan: Admit, n.p.o., IV fluid, IV antibiotic, to the OR for laparoscopic cholecystectomy, possible o pen. Patient understands the risks, benefits, and alternatives and agrees for the procedure. /MODL Voice ID: [id number]
--- NOTE | 2019-07-14 07:18 | P.OP ---
Acquisition Advisor: Jude HAMMER Preoperative diagnosis: Acute Cholecystitis and Cholelithiasis Postoperative diagnosis: same Primary procedure: Lap Janet Anesthesia: General Estimated blood loss: min Specimen: GB Findings: as above Complications: None Transferred to: Recovery Room Condition: Good
[2019-07-14] MEDS: HYDROMORPHONE HCL 1 MG/ML INJ ONE ×4 (07:40→08:12)
[2019-07-14] MEDS ORDERED: ONDANSETRON 4 MG/2 ML VIAL IV PRN (07:46)
--- NOTE | 2019-07-14 11:19 | RAD REPORT ---
EXAM DESCRIPTION: Abdomen Pelvis W Contrast CLINICAL HISTORY: ABD PAIN TECHNIQUE: Contiguous axial images obtained through the abdomen and pelvis following the uneventful administration of IV contrast. Coronal and sagittal reformatted images were provided. This exam was performed according to our departmental dose-optimization program, which includes autom ated exposure control, adjustment of the mA and/or kV according to patient size and/or use of iterati ve reconstruction technique. COMPARISON: 08/26/2014 FINDINGS: Lung bases: Clear Liver: Stable 2 x 1.6 cm left hepatic hyperdense lesion on arterial images. This becomes isodense on portal venous phase. 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 Gallbladder and biliary system: Small gallstones. The gallbladder wall is mildly thickened. Small nimesh unt of pericholecystic fluid. Pancreas: Unremarkable Spleen: Unremarkable Adrenals: Unremarkable Kidneys: Normal renal cortical enhancement. No calculi. No hydronephrosis. Excreted contrast is prese nt within both renal collecting systems bilaterally on delayed images. Bowel: Moderate stool within the proximal to mid large bowel. No obstruction. No appreciable mucosal thickening. Appendix: Normal caliber appendix. No findings to suggest acute appendicitis. Urinary bladder: Mild circumferential urinary bladder wall thickening. Reproductive: Unremarkable as visualized Lymph nodes: No pathologically enlarged lymph nodes. Peritoneum: No focal fluid collection. No free air. Vessels: No abdominal aortic aneurysm. Abdominal wall: Small fat-containing umbilical hernia. Bones: Minimal multilevel osteophytic lipping. No acute fracture. IMPRESSION: 1. Findings suggestive of acute cholecystitis. 2. Mild circumferential urinary bladder wall thickening. Please correlate clinically for cystitis. 3. Other findings as above. Electronically signed by: Yelena Falcon MD 07/14/2019 2:32 AM TWISTING PRESS OPERATOR Due to temporary technical issues with the PACS/Fluency reporting system, reports are being signed by the in house radiologist as a courtesy to ensure prompt reporting. The interpreting radiologist is f ully responsible for the content of the report.
[2019-07-14] MEDS: CEFOXITIN/SWI 1gm 1 GM/10 ML SYR IV SCH ×2 (11:42→17:50)
[2019-07-14] MEDS ORDERED: CEFOXITIN SODIUM 1 GM/VIAL IVPB SCH (12:00)
[2019-07-14] MEDS: HYDROCODONE/APAP 7.5/325 MG TAB PO PRN ×2 (13:47→18:16)
--- NOTE | 2019-07-14 14:26 | OP ---
Date of Procedure: 07/14/2019 Surgeon: Alex Kumari MD Receiver Bulk System: JAQUELIN Aparicio Preoperative Diagnoses: Acute cholecystitis and cholelithiasis. Postoperative Diagnoses: Acute cholecystitis and cholelithiasis. Procedure: Laparoscopic cholecystectomy. Estimated Blood Loss: Minimal. Specimen: Gallbladder. Findings: As above. Anesthesia: General. Complications: None. Patient tolerated the procedure in stable condition, taken to Recovery in good general condition. Description Of Procedure: Patient was brought to the OR, placed in supine position. General anesthe sb was begun. The patient was prepped and draped in usual sterile fashion. Marcaine 0.5% was infil trated locally. A 15-blade was used to make a 1 cm infraumbilical midline incision. Subcutaneous ti ssue divided. The fascia was identified and divided. A #1 Vicryl stay suture was placed. Peritonea l cavity was entered with sharp and blunt dissection. 12 mm trocar was placed into the peritoneal ca vity under direct vision. Pneumoperitoneum was established. Three 5 mm trocars were placed, 1 in th e epigastrium just to the right of midline and 2 in the right subcostal region. Laparoscopy revealed acute inflammation of the gallbladder with distention and gallbladder aspirated of bile and then fun dus retracted superiorly. Infundibulum was identified and retracted inferolaterally. Cystic duct an d cystic artery were clearly identified with sharp and blunt dissection. Clips placed. Both structu res were divided. Cautery was used to remove the gallbladder from the liver bed. Bleeding on the li nitesh bed was controlled with cautery. The gallbladder was retrieved through the umbilicus via an Endo Catch bag. Right upper quadrant was irrigated. Effluent was clear. No evidence of bleeding or bile leakage appreciated. Subsequently, all trocars were removed under direct vision. Stay sutures were tied to each other to reapproximate the fascial defect. Subcutaneous wounds were irrigated. Bleedi ng controlled with cautery and 3-0 chromic used to approximate the subcutaneous tissue and close the skin. Sterile dressing was applied. Patient was awakened and taken to Recovery in good general cond ition. /MODL Voice ID: [id number] Report ID: [id number]
[2019-07-14] MEDS: HYDROMORPHONE HCL 1 MG/ML INJ IV PRN (20:31)
[2019-07-15] MEDS: CEFOXITIN/SWI 1gm 1 GM/10 ML SYR IV SCH ×2 (00:32→06:37)
[2019-07-15] MEDS: D5 0.45 NS 1,000 ML IV SCH (00:33)
[2019-07-15] MEDS: HYDROCODONE/APAP 7.5/325 MG TAB PO PRN ×2 (04:01→09:24)
[2019-07-15 04:35] LABS: Absolute Lymphocytes (CBC) 1.3 K/uL (0.7-4.9); Basophils % 0.1 % (0-1.3); Hematocrit 29.7 % (36.0-45.0); Lymphocytes % 8.2 % (15.3-44.8); RBC Red Blood Cell Count 3.65 M/uL (3.86-4.86)
[2019-07-15 05:04] LABS: Platelet Estimate ADEQ; Toxic Granulation 1+; Urine White Blood Cell Casts OK
[2019-07-15 05:05] LABS: Blood Morphology Comment NOT SEEN (NOT SEEN)
[2019-07-15 08:10] VITALS: BP 119/63; TEMP 97.2
[2019-07-15 08:34] VITALS: O2SAT 98
[2019-07-15] MEDS: HYDROMORPHONE HCL 1 MG/ML INJ IV PRN (11:00)
--- NOTE | 2019-07-16 04:09 | DS ---
Date of Discharge: 07/15/2019 Admitting Diagnosis: Acute cholecystitis with cholelithiasis. Discharge Diagnosis: Acute cholecystitis with cholelithiasis. Procedure: Laparoscopic cholecystectomy. Hospital Course: Patient is a 43-year-old female who underwent the aforementioned procedure. Postop eratively, she is tolerating diet, ambulating, pain controlled with p.o. pain medication, afebrile. Therefore, patient will be discharged to home. Disposition: Home. Condition: Stable. Discharge Instructions: Resume home medications and diet. Activity as tolerated. No heavy lifting. Remove outer dressing in a.m. Shower. Keep Steri-Strips on at all times. Incentive spirometry as ordered. Follow up my office in 1 week. Call for appointment. Tylenol No. 3 one tablet p.o. q.4 p .r.n. pain. /MODL Voice ID: [id number] Report ID: [id number]
== END 2019-07-15 11:25 | disposition home or self-care (01) | DRG 419 ==
LOC: ER 23:58 → ERHOLD 07-14 03:20 → 4TH 07-14 04:02
PROVIDERS: ADMIT Surgery; ATTEND Surgery
PROC: 0FT44ZZ Resection of Gallbladder, Percutaneous Endoscopic Approach (ICD-10-PCS; principal; 2019-07-14 06:00)
DX: K80.00 Calculus of gallbladder with acute cholecystitis without obstruction (principal)
CPT/HCPCS: 36415; 74177; 80048; 80076; 81003; 83690; 85025; 88304; 96361; 96374; 96375; 99285; J1100; J1170; J1200; J2405; J2543; J2704; J2710; J2930; J3010; J7030; J7120; J7799; Q9967

== ENCOUNTER 2021-08-23 02:10 | Emergency (ER) | payer BC ==
--- OUTSIDE RECORDS SUMMARY | 2021-08-23 02:12 | XMS REPORT | Continuity of Care Document ---
:1975 Author Organization [facility] t Address [address] [place] [address] Care Team Providers Name Role Phone Stephanie ESTEVEZ, T Attending Clinician Unavailable Cassius KENNEDY, G Attending Clinician Libra MILLER Attending Clinician Unavailable Payers Payer Name Policy Type Policy Number Effective Date Expiration Date S ource Problems Condition Condition Condition Status Onset Resolution Last Treating Co mments Source Name Details Category Date Date Treatment Clinician Date No known No known Disease Unive rs active active ity of problems problems [facility] Allergies, Adverse Reactions, Alerts Allergy Allergy Status Severity Reaction(s) Onset Inactive Treating Comm ents Source Name Type Date Date Clinician NO KNOWN Drug Active Univers ALLERGIE Class ity of S [facility] Social History Social Habit Start Date Stop Date Quantity Comments Source Sex Assigned At Uni versity [facility] Exposure to SARS-CoV-2 Not sure [facility] [place] (event) [facility] Smoking Status Start Date Stop Date Source Unknown if ever smoked Universit y [facility] Medications Ordered Filled Start Stop Current Ordering Indication Dosage Frequency Signature Comments Components Source Medication Medication Date Date Medication? Clinician (SIG) Name Name butalbital- 2020- 2020- No 1{tbl} 1 tablet, Univers acetaminoph 2-30 12-30 Oral, ONCE i ty of en-caff 22:00: 21:05 NOW, 1 [place] (ESGIC) 00 :00 dose, Wed Medical 50-325-40 07/26/20 Branch mg tablet 1 at 1600, tablet Routine HYDROcodone 2019-07 2020- No 1{tbl} 1 tablet, Univers -acetaminop 2-30 12-30 Oral, ity of [place] (NORCO) 22:00: 21:05 [place]CE[place] 1 [place] 10-325 mg 00 :00 dose, Wed Medic al tablet 1 07/26/20 Branch tablet at 1600, Routine fish 2019-07 Yes 1g Take 1 g Univers oil-omega-3 2-30 by mouth ity of fatty acids 21:55: [place] (FISH OIL[place] 59 Medical 340-1,000 Branch mg capsule Cholecalcif 2019-07 Yes 6000U Take 6,000 Univers nikole, 2-30 Units by ity of Vitamin D3, 21:55: mouth [place] (VITAMIN 59 daily. Medical D3) 50 mcg Branch (2,000 unit) capsule fexofenadin 2019-07 Yes 360mg Take 360 U nivers e (ALLERGY 2-30 mg by ity of RELIEF, 21:55: mouth [place] FEXOFENADIN 59 daily. Medica l E,) 180 mg Branch tablet DULOXETINE 2019-07 Yes 30mg Take 30 mg U nivers HCL, BULK, 2-30 by mouth ity o f MISC 21:55: daily. [place] 59 Medical Branch diclofenac- 2019-07 Yes Univer s capsaicin 2-30 ity of 75 mg- 21:55: [place] 0.025 % Kit 59 Medical Branch etanercept 2019-07 Yes 25mg inject 25 Un tata (ENBREL) 50 2-30 mg under ity of mg/mL (1 21:55: the skin [place] mL) 59 weekly. Medical injection Branch zolpidem 2019-07 Yes 12.5mg Take 12.5 Un tata (AMBIEN CR) 2-30 mg by ity of 12.5 mg CR 21:55: mouth at [place] as tablet 59 bedtime as Medical needed for Branch Sleep. levocetiriz 2019-07 Yes 10mg Take 10 mg Univers ine 2-30 by mouth. ity of dihydrochlo 21:55: [place] ride 59 Medical (LEVOCETIRI Branch ZINE ORAL) famotidine 2019-07 Yes 20mg Take 20 mg U nivers (PEPCID) 20 2-30 by mouth 2 it y of mg tablet 21:55: (two) [place] 59 times Medical daily. Branch azelastine 2019-07 Yes Use in Univ ers HCl 2-30 each ity of (AZELASTINE 21:55: nostril. [place] NASAL) 59 Medical Branch omalizumab 2019-07 Yes inject Unive rs (XOLAIR SC) 2-30 under the ity of 21:55: skin once [place] 59 every Medical month. Branch fish 2019-07 Yes 1g Take 1 g Univers oil-omega-3 2-30 by mouth ity of fatty acids 21:55: [place]. [place] (FISH OIL) 59 Medical 340-1,000 Branch mg capsule Cholecalcif 2019-07 Yes 6000U Take 6,000 Univers nikole, 2-30 Units by ity of Vitamin D3, 21:55: mouth [place] (VITAMIN 59 daily. Medical D3) 50 mcg Branch (2,000 unit) capsule fexofenadin 2019-07 Yes 360mg Take 360 U nivers e (ALLERGY 2-30 mg by ity of RELIEF, 21:55: mouth [place] FEXOFENADIN 59 daily. Medica l E,) 180 mg Branch tablet DULOXETINE 2019-07 Yes 30mg Take 30 mg U nivers HCL, BULK, 2-30 by mouth ity o f MISC 21:55: daily. [place] 59 Medical Branch diclofenac- 2019-07 Yes Univer s capsaicin 2-30 ity of 75 mg- 21:55: [place] 0.025 % Kit 59 Medical Branch etanercept 2019-07 Yes 25mg inject 25 Un tata (ENBREL) 50 2-30 mg under ity of mg/mL (1 21:55: the skin [place] mL) 59 weekly. Medical injection Branch zolpidem 2019-07 Yes 12.5mg Take 12.5 Un tata (AMBIEN CR) 2-30 mg by ity of 12.5 mg CR 21:55: mouth at [place] as tablet 59 bedtime as Medical needed for Branch Sleep. levocetiriz 2019-07 Yes 10mg Take 10 mg Univers ine 2-30 by mouth. ity of dihydrochlo 21:55: [place] ride 59 Medical (LEVOCETIRI Branch ZINE ORAL) famotidine 2019-07 Yes 20mg Take 20 mg U nivers (PEPCID) 20 2-30 by mouth 2 it y of mg tablet 21:55: (two) [place] 59 times Medical daily. Branch azelastine 2019-07 Yes Use in Univ ers HCl 2-30 each ity of (AZELASTINE 21:55: nostril. [place] NASAL) 59 Medical Branch omalizumab 2019-07 Yes inject Unive rs (XOLAIR SC) 2-30 under the ity of 21:55: skin once [place] 59 every Medical month. Branch benzonatate 2019-07 Yes [id number] 100mg Take 1 Univers 100 mg 2-30 capsule by ity of capsule 00:00: mouth 3 [place] 00 (three) Medical times Branch daily as needed for Cough. butalbital- 2019-07 Yes [id number] 1{tbl} Take 1 Univers acetaminoph 2-30 tablet by ity of en-caff 00:00: mouth [place] 50-325-40 00 every 4 Medical mg tablet (four) Branch hours as needed for Pain (scale 4-6) or Pain (scale 7-10). benzonatate 2019-07 Yes [id number] 100mg Take 1 Univers 100 mg 2-30 capsule by ity of capsule 00:00: mouth 3 [place] 00 (three) Medical times Branch daily as needed for Cough. butalbital- 2019-07 Yes [id number] 1{tbl} Take 1 Univers acetaminoph 2-30 tablet by ity of en-caff 00:00: mouth [place] 50-325-40 00 every 4 Medical mg tablet (four) Branch hours as needed for Pain (scale 4-6) or Pain (scale 7-10). codeine-gua 2019-07- No 10mL Take 10 mL Univers ifenesin 2-30 -07 by mouth ity of 10-100 mg/5 00:00: 05:59 every 6 [place] mL solution 00 :00 (six) Medical hours as Branch needed for Cough for up to 7 days. Indication s: night time cough codeine-gua 2019-07- No 10mL Take 10 mL Univers ifenesin 2-30 -07 by mouth ity of 10-100 mg/5 00:00: 05:59 every 6 [place] mL solution 00 :00 (six) Medical hours as Branch needed for Cough for up to 7 days. Indication s: night time cough cephALEXin 2019-07- No [id number] 250mg Take 1 Univers 250 mg 2-30 - capsule by ity of capsule 00:00: 05:59 mouth 4 [place] 00 :00 (four) Medical times Branch daily for 3 days. cephALEXin 2019-07- No [id number] 250mg Take 1 Univers 250 mg 2-30 - capsule by ity of capsule 00:00: 05:59 mouth 4 [place] 00 :00 (four) Medical times Branch daily for 3 days. Vital Signs Vital Name Observation Time Observation Value Comments Source Systolic blood 2020-07-26 21:50:00 146 mm[Hg] Univer sity of pressure [facility] Diastolic blood 2020-07-26 21:50:00 91 mm[Hg] Unive rsity of [facility] Heart rate 2020-07-26 21:50:00 93 /min [facility] Respiratory rate 2020-07-26 21:50:00 18 /min [facility] Oxygen saturation in 2020-07-26 21:50:00 97 /min [facility] Arterial blood by [facility] Pulse oximetry [place] Body temperature 2020-07-26 21:04:39 38.06 Laura [facility] Body weight 2020-07-26 19:18:00 113.399 kg [facility] Procedures Procedure Date / Time Performed Performing Clinician Sourc e URINALYSIS 2020-07-26 19:39:00 Abbey Miller [facility] ADC,CLC OR LCC ONLY - 2020-07-26 19:39:00 [facility] INFLUENZA A & B DIRECT Medical B ranch ANTIGEN NOTICE OF PRIVACY 2020-07-26 19:12:49 Doctor Unassigned, No Univ [facility] PRACTICES Name Medical Branch CONSENT/REFUSAL FOR 2020-07-26 19:12:32 [facility] AND Name Medical Branch TREATMENT Encounters Start End Encounter Admission Attending Care Care Encounter Source Date/Time Date/Time Type Type Clinicians Facility Department ID 2020-07-27 2020-07-27 Letter REYNA Brown [id number] Univers 00:00:00 00:00:00 (Out) Sharron YI [id number] it y of [facility] [id number] Ray [id number] [facility] 019 Branch 2020-07-26 2020-07-26 Emergency OLIVER Miller [id number] Univers 13:19:00 16:05:00 Abbey Acuna [id number] ity [facility] [id number] [facility] [id number] [facility] 084 Branch 2020-07-26 2020-07-26 Emergency X [facility] ERT [id number] Univers 13:19:00 13:19:00 ABBEY morales [facility] Results Test Description Test Time Test Comments Results Result Comments Source Urinalysis 2020-07-26 20:32:00 Test Item Value Reference Range Interpretation Comme nts APPEARANCE (test code = Hazy Clear A 5364196079) COLOR (test code = 7041060920) Yellow Yellow PH (test code = 8748801701) 4.8-8.0 SP GRAVITY (test code = 1.003-1.030 7466215682) GLU U QUAL (test code = Normal Normal 4382949219) BLOOD (test code = 5061493945) 1+ Negative A KETONES (test code = 6745939741) Negative Negative PROTEIN (test code = 2887-8) Negative Negative UROBILIN (test code = Normal Normal 5425850116) BILIRUBIN (test code = Negative Negative 3844043732) NITRITE (test code = 5219637436) Negative Negative LEUK ISMAEL (test code = 25/uL Negative A 7509451712) RBC/HPF (test code = 4186407277) See_Comment [Automated message] The system which ge nerated this result transmit sabas reference range: 0 - 3 HP F. The reference range was not used to interpret th is result as normal/abnormal . WBC/HPF (test code = 7716396116) See_Comment [Automated message] The system which ge nerated this result transmit sabas reference range: 0 - 5 HP F. The reference range was not used to interpret th is result as normal/abnormal . BACTERIA (test code = Few Negative A 3911056509) MUCOUS (test code = 8455809632) Slight Negative LPF A SQ EPITH (test code = HPF 5563509446) Lab Interpretation (test code = Abnormal 94229-2) [facility] - INFLUENZA A & B DIRECT [id number] 20:25:00 Test Item Value Reference Range Interpretation Comments Influenza A (test code = 67709-4) Negative Negative Influenza B (test code = 62784-1) Negative Negative Lab Interpretation (test code = Normal 89291-4) [facility]
[2021-08-23 02:41] LABS: Urine Blood 3+ (Negative); Urine Glucose Negative (Negative); Urine Protein 2+ (Negative); Urine Specific Gravity >=1.030 (1.005-1.030); Urine pH 6.5 (5.0-7.0)
[2021-08-23] MEDS ORDERED: CEFTRIAXONE 1000 MG/VIAL ONE (02:46)
[2021-08-23] MEDS ORDERED: LIDOCAINE 1% MPF 2 ML AMPULE ONE ×2 (02:47→02:51)
[2021-08-23] MEDS ORDERED: HYDROCODONE/APAP 10/325 TAB ONE (02:51)
--- NOTE | 2021-08-23 02:53 | EDPHYS ---
Physician Documentation [facility] Name: Stephania Zhou Age: 45 yrs Sex: Female : 1975 Arrival Date: 08/23/2021 Time: 02:12 Bed 20 Private MD: Zaire Portillo ED Physician Dani Martines HPI: 08/23 02:49 This 45 yrs old Unknown Female presents to ER via Ambulatory with complaints of Urinary rn Problem. 02:49 The patient presents with urinary symptoms, dysuria, frequency, hematuria, urgency. rn Onset: The symptoms/episode began/occurred yesterday. Modifying factors: The symptoms are alleviated by nothing, the symptoms are aggravated by urinating. Associated signs and symptoms: Pertinent positives: dysuria, nausea, Pertinent negatives: fever. Severity of symptoms: At their worst the symptoms were mild, in the emergency department the symptoms are unchanged. The patient has experienced similar episodes in the past. The patient has not recently seen a physician. Patient reports 2 days of dysuria, blood-tinged urine, nausea and suprapubic abdominal pain. Reports feels similar to her previous UTIs. Denies fever or vomiting. No back pain. No trauma. No history of kidney stones.. UNDERCOVER COP: 02:21 LMP 08/04/2021 al4 Historical: - Allergies: 02:21 Iodine; al4 - PMHx: 02:21 Arthritis; al4 - PSHx: 02:21 Cholecystectomy; tubal ligation; al4 - Immunization history:: Adult Immunizations up to date, Client reports receiving the 2nd dose of the Covid vaccine, Flu vaccine is not up to date. - Social history:: Smoking status: Patient denies any tobacco usage or history of. Patient uses alcohol, weekly. - Family history:: not pertinent. - Hospitalizations: : No recent hospitalization is reported. ROS: 02:49 Constitutional: Negative for fever, chills, and weight loss, Cardiovascular: Negative rn for chest pain, palpitations, and edema, Respiratory: Negative for shortness of breath, cough, wheezing, and pleuritic chest pain, Abdomen/GI: + suprapubic abd cramping and nausea : + dysuria and blood-tinged urine Exam: 02:49 Constitutional: This is a well developed, well nourished patient who is awake, alert, rn and in no acute distress. Cardiovascular: Regular rate and rhythm. No pulse deficits. Abdomen/GI: soft, mild suprapubic tenderness, no rebound Back: No CVAT Skin: Warm, dry Vital Signs: 02:18 BP 137 / 99; Pulse 97; Resp 18 S; Temp 98.5(O); Pulse Ox 100% on R/A; Weight 113.4 kg al4 (R); Height 5 ft. 6 in. (167.64 cm) (R); Pain 9/10; 02:56 BP 126 / 55 LA Supine (auto/reg); Pulse 82 MON; Resp 18 S; Temp 98.6(O); Pulse Ox 100% tk1 on R/A; 02:18 Body Mass Index 40.35 (113.40 kg, 167.64 cm) al4 MDM: 02:22 Patient medically screened. rn 02:49 Differential diagnosis: urinary tract infection. Data reviewed: vital signs, nurses rn notes, lab test result(s), urinalysis, and as a result, I will discharge patient. Counseling: I had a detailed discussion with the patient and/or guardian regarding: the historical points, exam findings, and any diagnostic results supporting the discharge/admit diagnosis, lab results, the need for outpatient follow up, to return to the emergency department if symptoms worsen or persist or if there are any questions or concerns that arise at home. Special discussion: I discussed with the patient/guardian in detail that at this point there is no indication for admission to the hospital. It is understood, however, that if the symptoms persist or worsen the patient needs to return immediately for re-evaluation. 08/23 02:23 Order name: Urine Microscopic Only rn 08/23 02:23 Order name: Urine Microscopic Only [facility] 08/23 02:23 Order name: Urine Dipstick-Ancillary (obtain specimen); Complete Time: 02:56 rn 08/23 02:40 Order name: Urine Dipstick-Ancillary; Complete Time: 02:52 EDMS 08/23 02:23 Order name: Urine Test (obtain specimen) rn Administered Medications: 02:50 Drug: Rocephin (cefTRIAXone) 1 grams Route: IM; Site: left ventrogluteal; tk1 02:55 Drug: [place] (HYDROcodone-acetaminophen) 10 mg-325 mg 1 tabs Route: PO; tk1 Disposition Summary: 08/23/21 02:52 Discharge Ordered Location: Home rn Problem: new rn Symptoms: have improved rn Condition: Stable rn Diagnosis - UTI/ Urinary tract infection, site not specified rn Followup: rn - With: Private Physician - When: As needed - Reason: Recheck today's complaints, Re-evaluation by your physician Discharge Instructions: - Discharge Summary Sheet rn - Urinary Tract Infection, Adult rn Forms: - Medication Reconciliation Form rn - Thank You Letter rn - Antibiotic harness cutter - Prescription Opioid Use rn - Work release form mw2 Prescriptions: - cefpodoxime 100 mg Oral Tablet - take 2 tablets by ORAL route every 12 hours for 10 days take with food; 40 rn tablet; Refills: 0, Product Selection Permitted Signatures: Dispatcher [employer] EDDani Antonio MD MD rn Ledbetter, Alexis al4 Kirby, Tammie tk1
--- NOTE | 2021-08-23 02:53 | ER ---
Nurse's Notes [facility] Name: Stephania Zhou Age: 45 yrs Sex: Female : 1975 Arrival Date: 08/23/2021 Time: 02:12 Bed 20 Private MD: Zaire Portillo Diagnosis: UTI/ Urinary tract infection, site not specified Presentation: 08/23 02:18 Chief complaint: Patient states: "I am peeing blood and have lots of pain. I am also al4 having diarrhea. My whole pelvis area has been sore for 3 days, but the burning with urination started today and I am having to go so frequently. I think its a UTI because I have had them before.". Coronavirus screen: Vaccine status: Patient reports receiving the 2nd dose of the covid vaccine. [employer]. Ebola Screen: No symptoms or risks identified at this time. Initial Sepsis Screen: Does the patient meet any 2 criteria? HR > 90 bpm. No. Patient's initial sepsis screen is negative. Does the patient have a suspected source of infection? No. Patient's initial sepsis screen is negative. Risk Assessment: Do you want to hurt yourself or someone else? Patient reports no desire to harm self or others. Onset of symptoms was August 23, 2021. 02:18 Method Of Arrival: Ambulatory al4 02:18 Acuity: HETAL 3 al4 Triage Assessment: 02:24 General: Appears in no apparent distress. uncomfortable, Behavior is calm, cooperative, al4 appropriate for age. Pain: Complains of pain in pelvis. Neuro: Level of Consciousness is awake, alert, obeys commands, Oriented to person, place, time, situation. Cardiovascular: Capillary refill < 3 seconds Patient's skin is warm and dry. Respiratory: Airway is patent Respiratory effort is even, unlabored, Respiratory pattern is regular, symmetrical. GI: Reports diarrhea. : Reports burning with urination, pain urgency, urinary frequency, vaginal itching. Musculoskeletal: Range of motion: intact in all extremities. 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 - Social history:: Smoking status: Patient denies any tobacco usage or history of. Patient uses alcohol, weekly. - Family history:: not pertinent. - Hospitalizations: : No recent hospitalization is reported. Screenin:56 Abuse screen: Denies threats or abuse. Denies injuries from another. Nutritional tk1 screening: No deficits noted. Tuberculosis screening: No symptoms or risk factors identified. Fall Risk None identified. Assessment: 02:33 General: Appears uncomfortable, well groomed, well developed, well nourished, Behavior tk1 is calm, cooperative, appropriate for age. 02:56 Pain: Complains of pain in suprapubic area Pain does not radiate. Pain currently is 8 tk1 out of 10 on a pain scale. Quality of pain is described as sharp, Pain began 1 day ago. Is continuous, Alleviated by nothing. Neuro: Level of Consciousness is awake, alert, obeys commands, Oriented to person, place, time, situation, Appropriate for age [employer] are equal bilaterally Moves all extremities. Full function Gait is steady, Speech is normal, Cardiovascular: No deficits noted. Respiratory: Airway is patent Respiratory effort is even, unlabored, Respiratory pattern is regular, symmetrical. GI: No deficits noted. : Urine is cloudy, Reports burning with urination, since 08/21/2021 pain in bilateral lower quadrant(s). EENT: No deficits noted. Derm: No deficits noted. Musculoskeletal: No deficits noted. 03:15 Reassessment: D/C per MD order. Discharge/Prescription instructions given to patient tk1 and SO. Verbalized understanding. Vital Signs: 02:18 BP 137 / 99; Pulse 97; Resp 18 S; Temp 98.5(O); Pulse Ox 100% on R/A; Weight 113.4 kg al4 (R); Height 5 ft. 6 in. (167.64 cm) (R); Pain 9/10; 02:56 BP 126 / 55 LA Supine (auto/reg); Pulse 82 MON; Resp 18 S; Temp 98.6(O); Pulse Ox 100% tk1 on R/A; 02:18 Body Mass Index 40.35 (113.40 kg, 167.64 cm) al4 ED Course: 02:12 Patient arrived in ED. es 02:12 [place], Zaire, MD is Private Physician. es 02:21 Triage completed. al4 02:21 Arm band placed on right wrist. al4 02:22 Dani Martines MD is Attending Physician. rn 02:27 Chantal Mora, RN is Primary Nurse. mk 02:55 Urine Microscopic Only Sent. tk1 02:56 Awaiting lab results. tk1 02:56 Call light in reach. Side rails up X 1. Side rails up X2. Adult w/ patient. tk1 02:56 Urine Microscopic Only Sent. tk1 02:56 No provider procedures requiring assistance completed. tk1 Administered Medications: 02:50 Drug: Rocephin (cefTRIAXone) 1 grams Route: IM; Site: left ventrogluteal; tk1 02:55 Drug: [place] (HYDROcodone-acetaminophen) 10 mg-325 mg 1 tabs Route: PO; tk1 Outcome: 02:52 Discharge ordered by MD. rn 03:15 Discharged to home ambulatory. tk1 03:15 Condition: stable 03:15 Discharge instructions given to patient, significant other, Instructed on discharge instructions, follow up and referral plans. medication usage, Demonstrated understanding of instructions, follow-up care, medications, Prescriptions given X 1. 03:18 Patient left the ED. tk1 Signatures: Jessi Stacy Roman, MD MD rn Ledbetter, Alexis alChantal Carmona, RN RN Ivone Burk tk1 Corrections: (The following items were deleted from the chart) 02:27 02:18 BP 142 / 100; Pulse 97bpm; Resp 18bpm; Pulse Ox 100%; Temp 98.5F; 113.4 kg; al4 Height 5 ft. 6 in.; BMI: 40.3; Pain 9/10; al4 02:34 02:18 Chief complaint: Patient states: "I am peeing blood and have lots of pain. I am al4 also having diarrhea. My whole pelvis area has been sore for 3 days, but today the burning with urination started today and I am having to go so frequently. I think its UTI because I have had them before." al4 02:35 02:18 BP 137 / 99; Pulse 97bpm; Resp 18bpm; Pulse Ox 100%; Temp 98.5F; 113.4 kg; Height al4 5 ft. 6 in.; BMI: 40.3; Pain 9/10; al4
[2021-08-23 03:23] VITALS: O2SAT 100
[2021-08-23 03:25] VITALS: BP 126/55; TEMP 98.6
[2021-08-23 03:37] LABS: Urine Bacteria 20-50 /HPF (<20)
[2021-08-23 03:38] LABS: Urine Urothelial Cells <5 /HPF (NONE SEEN)
== END 2021-08-23 03:18 | disposition home or self-care (01) ==
LOC: ER 02:10
DX: N39.0 Urinary tract infection, site not specified (principal); Z91.048 Other nonmedicinal substance allergy status
CPT/HCPCS: 81003; 81015; 87077; 87086; 87088; 87186; 96372; 99283